=== PATIENT | female | born 1990 | race Caucasian/White ===

== ENCOUNTER 2017-04-15 05:43 | Inpatient (IN) | payer BC, MEDICAID ==
[2017-04-15 09:04] LABS: Hematocrit 35 % (35-47); Hemoglobin 11.5 g/dl (12.0-16.0); Mean Corpuscular HGB Conc 33 g/dl (31-36); Mean Corpuscular Hemoglobin 28 pg (27-31); Mean Corpuscular Volume 85 fL (80-97); Mean Platelet Volume 10 um3 (7.4-10.4); Red Cell Distribution Width 14 % (10.5-15)
[2017-04-15] MEDS ORDERED: OBEPIDURAL* 250 ML ONE (10:20)
[2017-04-15] MEDS ORDERED: Phenylephrine IV* 40 MCG/ML 10 ML SYRINGE ONE (10:40)
[2017-04-15] MEDS ORDERED: EPHEDrine (Pressors)* 50 MG/ML VIAL IV PUSH PRN (10:53)
[2017-04-15] MEDS ORDERED: Phenylephrine IV* 40 MCG/ML 10 ML SYRINGE IV PUSH PRN (10:53)
[2017-04-15] MEDS ORDERED: Famotidine TAB* 20 MG PO PRN (10:53)
[2017-04-15] MEDS ORDERED: Sodium Citrate/Citric Acid* 15 ML UDC PO PRN (10:53)
[2017-04-15] MEDS ORDERED: OBEPIDURAL* 250 ML EPIDURAL SCH (11:00)
[2017-04-15] MEDS ORDERED: Oxytocin in LR* 20 UNITS/1,000 ML BAG IVPB SCH (18:00)
[2017-04-15] MEDS ORDERED: Acetaminophen TAB* 325 MG ONE (18:24)
[2017-04-16] MEDS ORDERED: fentaNYL* 50 MCG/ML 2 ML VIAL (100 MCG VIAL) IV ONE (02:59)
[2017-04-16] MEDS ORDERED: fentaNYL* 50 MCG/ML 2 ML VIAL (100 MCG VIAL) ONE (03:00)
[2017-04-16] MEDS ORDERED: Dibucaine 1% 28.35 GM TUBE ONE (03:44)
[2017-04-16] MEDS ORDERED: Witch Hazel PAD* JAR ONE (03:44)
[2017-04-16] MEDS ORDERED: Acetaminophen TAB* 325 MG PO PRN (03:50)
[2017-04-16] MEDS ORDERED: Glycerin ADULT SUPP PR PRN (03:50)
[2017-04-16] MEDS ORDERED: Measles, Mumps,Rubella VACC* 0.5 ML/VIAL SUBCUT ONE (03:50)
[2017-04-16] MEDS ORDERED: Oxytocin in LR* 20 UNITS/1,000 ML BAG IVPB SCH (04:00)
[2017-04-16] MEDS: Dibucaine 1% 28.35 GM TUBE PR PRN ×2 (04:31→20:55)
[2017-04-16] MEDS: Ibuprofen TAB* 600 MG PO PRN ×3 (04:31→18:14)
[2017-04-16] MEDS: Witch Hazel PAD* JAR TOPICAL PRN ×2 (04:31→20:54)
[2017-04-16] MEDS: Docusate CAP* 100 MG PO SCH ×3 (08:14→20:52)
[2017-04-16] MEDS: oxyCODONE/Acetamin 5/325 MG* TAB PO PRN ×4 (08:14→20:52)
[2017-04-16] MEDS ORDERED: Simethicone CHEW TAB* 80 MG PO SCH (08:30)
[2017-04-17] MEDS: Ibuprofen TAB* 600 MG PO PRN ×4 (00:14→22:42)
[2017-04-17] MEDS: Witch Hazel PAD* JAR TOPICAL PRN (00:14)
[2017-04-17] MEDS: Dibucaine 1% 28.35 GM TUBE PR PRN (00:14)
[2017-04-17] MEDS: oxyCODONE/Acetamin 5/325 MG* TAB PO PRN ×5 (01:02→20:05)
[2017-04-17 06:34] LABS: Hematocrit 25 % (35-47); Mean Corpuscular HGB Conc 33 g/dl (31-36); Mean Corpuscular Hemoglobin 28 pg (27-31); Mean Corpuscular Volume 87 fL (80-97); Mean Platelet Volume 9 um3 (7.4-10.4); Red Blood Count 2.82 10^6/ul (4.0-5.4); Red Cell Distribution Width 14 % (10.5-15); White Blood Count 14.5 10^3/ul (3.5-10.8)
[2017-04-17] MEDS: Ferrous Gluconate TAB* 324 MG TAB PO SCH ×2 (09:26→22:42)
[2017-04-17] MEDS: Docusate CAP* 100 MG PO SCH ×3 (09:26→22:42)
[2017-04-18] MEDS: oxyCODONE/Acetamin 5/325 MG* TAB PO PRN ×4 (01:54→21:16)
[2017-04-18] MEDS: Ibuprofen TAB* 600 MG PO PRN ×3 (05:31→19:49)
[2017-04-18] MEDS: Ferrous Gluconate TAB* 324 MG TAB PO SCH ×2 (09:38→19:49)
[2017-04-18] MEDS: Docusate CAP* 100 MG PO SCH ×3 (09:38→19:49)
[2017-04-18] MEDS: Dibucaine 1% 28.35 GM TUBE PR PRN (14:18)
[2017-04-18] MEDS: Witch Hazel PAD* JAR TOPICAL PRN (14:18)
[2017-04-18] MEDS ORDERED: oxyCODONE TAB* 5 MG TAB PO PRN (15:02)
[2017-04-18] MEDS ORDERED: oxyCODONE/Acetamin 5/325 MG* TAB PO PRN (20:04)
[2017-04-19] MEDS: Ibuprofen TAB* 600 MG PO PRN ×2 (03:01→09:50)
[2017-04-19 08:22] VITALS: BP 113/68
[2017-04-19] MEDS: Docusate CAP* 100 MG PO SCH (09:49)
[2017-04-19] MEDS: Ferrous Gluconate TAB* 324 MG TAB PO SCH (09:49)
== END 2017-04-19 10:16 | disposition home or self-care (01) | DRG 542 ==
LOC: MCHOBOUT 05:43 → MCHOB 08:37
PROVIDERS: ADMIT Midwife; ATTEND Midwife
PROC: 10907ZC Drainage of Amniotic Fluid, Therapeutic from Products of Conception, Via Natural or Artificial Opening (ICD-10-PCS; principal; 2017-04-15)
PROC: 10E0XZZ Delivery of Products of Conception, External Approach (ICD-10-PCS; 2017-04-15)
PROC: 4A1HX4Z Monitoring of Products of Conception, Cardiac Electrical Activity, External Approach (ICD-10-PCS; 2017-04-15)
PROC: 0DQR0ZZ Repair Anal Sphincter, Open Approach (ICD-10-PCS; 2017-04-15)
DX: O48.0 Post-term pregnancy (principal); O70.20 Third degree perineal laceration during delivery, unspecified; O90.81 Anemia of the puerperium; O66.0 Obstructed labor due to shoulder dystocia; Z87.891 Personal history of nicotine dependence; Z3A.41 41 weeks gestation of pregnancy; Z37.0 Single live birth
CPT/HCPCS: 36415; 85025; 86850; 86900; 86901; 90707; A9270-GY; J3010

== ENCOUNTER → 2017-10-08 19:34 | Emergency (ER) | payer BC, MEDICAID ==
[~2017-10-08 19:34] MED LIST: A lbuterol Hfa (PREPAK) 1 MDI - ED TAKE HOME DISPENSING ONLY INHH ONE; Benzonatate CAP* 100 MG PO ONE
--- NOTE | 2017-10-08 21:24 | ED ---
Influenza-Like Illness - HPI Summary HPI Summary: 26F presents with cough, body aches, and sore throat for 2 days. She denies any SOB or chest pain. She denies any abdominal pain or n/v/d. She admits to fever. She admits to sinus congestion. She has tried Tylenol which has helped. She denies any resp issues. She states the cough has been bothering her the most. nothing makes the cough worst. She denies any history of strep throat. - History of Current Complaint Chief Complaint: EDUpperRespComplaint Time Seen by Provider: 10/08/17 19:47 - Allergy/Home Medications Allergies/Adverse Reactions: Allergies Allergy/AdvReac Type Severity Reaction Status Date / Time No Known Allergies Allergy Verified 10/08/17 19:38 PMH/Surg Hx/FS Hx/Imm Hx Endocrine/Hematology History: Denies: Hx Diabetes, Hx Thyroid Disease Cardiovascular History: Denies: Hx Hypertension Respiratory History: Denies: Hx Asthma, Hx Chronic Obstructive Pulmonary Disease (COPD) GI History: Denies: Hx Ulcer Infectious Disease History: No Infectious Disease History: Denies: Hx Hepatitis, Hx Human Immunodeficiency Virus (HIV), Traveled Outside the in Last 30 Days - Family History Known Family History: Negative: Respiratory Disease - Social History Alcohol Use: None Substance Use Type: Reports: None Smoking Status (MU): Light Every Day Tobacco Smoker Review of Systems Positive: Fever Positive: Sore Throat, Nasal Discharge Negative: Chest Pain Positive: Cough. Negative: Shortness Of Breath All Other Systems Reviewed And Are Negative: Yes Physical Exam Triage Information Reviewed: Yes Vital Signs On Initial Exam: Initial Vitals Temp Pulse Resp BP Pulse Ox 99.0 F 110 18 126/85 97 10/08/17 19:36 10/08/17 19:36 10/08/17 19:36 10/08/17 19:36 10/08/17 19:36 Vital Signs Reviewed: Yes Appearance: Positive: Well-Appearing Skin: Positive: Warm, Dry Head/Face: Positive: Normal Head/Face Inspection Eyes: Positive: Normal, EOMI, SILVANA, Conjunctiva Clear ENT: Positive: Normal ENT inspection, Pharyngeal erythema, Nasal congestion, Nasal drainage, TMs normal, Other - soft palate symmetric. Negative: Tonsillar swelling, Tonsillar exudate, Trismus, Muffled voice, Sinus tenderness, Uvula midline Neck: Positive: Supple, Nontender, No Lymphadenopathy Respiratory/Lung Sounds: Positive: Clear to Auscultation, Breath Sounds Present Cardiovascular: Positive: Normal, RRR Abdomen Description: Positive: Nontender, Soft Bowel Sounds: Positive: Present Musculoskeletal: Positive: Normal Neurological: Positive: Normal Psychiatric: Positive: Normal - [place] Coma Scale Coma Scale Total: 15 Diagnostics - Vital Signs Vital Signs Temp Pulse Resp BP Pulse Ox 10/08/17 19:36 99.0 F 110 18 126/85 97 - Laboratory Lab Statement: Any lab studies that have been ordered have been reviewed, and results considered in the medical decision making process. Flu Symptom Course/Dx - Course Course Of Treatment: 26F presents with cough, body aches, and sore throat for 2 days. She denies any SOB or chest pain. She denies any abdominal pain or n/v/ d. She admits to fever. She admits to sinus congestion. She has tried Tylenol which has helped. She denies any resp issues. She states the cough has been bothering her the most. nothing makes the cough worst. She denies any history of strep throat. on exam lungs CTA. pharnyx normal. flu and strept neg. will treat with magic mouth wash, tessalon, and inhaler patient understand and agrees with plan. - Diagnoses Differential Diagnosis/HQI/PQRI: Positive: Bronchitis, Influenza, Upper Respiratory Infection Provider Diagnoses: Upper respiratory infection Discharge - Discharge Plan Condition: Good Disposition: HOME Prescriptions: Benzonatate CAP* [Tessalon 100 MG CAP*] 100 mg PO TID PRN #21 cap PRN Reason: Cough Magic Mouth Was-JEFFREY/MAAL/LIDO* 5 ml SWISH SPIT QID #100 ml Patient Education Materials: Upper Respiratory Infection (ED) Referrals: Kenney Maria MD [Primary Care Provider] - Additional Instructions: Use Tessalon three times a day for cough Use inhaler one puff every 4-6 hours for cough as needed Take magic mouth wash swish and spit 5ml four times a day Use saline in the nose Use humidifier or place warm bowls of water around the room for cough Take Tylenol and ibuprofen for pain/fever every 6 hours Return to ED if develop any new or worsening symptoms
[2017-10-08 22:56] VITALS: BP 113/75
== END | disposition home or self-care (01) ==
LOC: ED 19:34
DX: J06.9 Acute upper respiratory infection, unspecified (principal); R05 Cough; R06.02 Shortness of breath; R50.9 Fever, unspecified; J02.9 Acute pharyngitis, unspecified; F17.210 Nicotine dependence, cigarettes, uncomplicated
CPT/HCPCS: 87502; 87651; 99282; A9270-GY

== ENCOUNTER 2018-06-03 17:35 | Emergency (ER) | payer BC ==
[2018-06-03 18:41] LABS: ABS Basophils 0 10^3/ul (0-0.2); ABS Eosinophils 0.1 10^3/ul (0-0.6); ABS Lymphocytes 1.5 10^3/ul (1.0-4.8); ABS Monocytes 0.5 10^3/ul (0-0.8); ABS Neutrophils 2.5 10^3/ul (1.5-7.7); ABS Nucleated RBC 0 10^3/ul; Eosinophil % 1.4 % (0-6); Hematocrit 37 % (35-47); Hemoglobin 12.4 g/dl (12.0-16.0); Lymphocyte % 32.6 % (25-47); Mean Corpuscular HGB Conc 34 g/dl (31-36); Mean Corpuscular Hemoglobin 28 pg (27-31); Mean Corpuscular Volume 84 fL (80-97); Mean Platelet Volume 8.3 um3 (7.4-10.4); Nucleated Red Blood Cells % 0.1; Platelet Count 265 10^3/ul (150-450); Red Blood Count 4.37 10^6/ul (4.00-5.40); Red Cell Distribution Width 13 % (10.5-15); White Blood Count 4.5 10^3/ul (3.5-10.8)
--- NOTE | 2018-06-03 18:55 | ED ---
Complex/Multi-Sys Presentation - HPI Summary HPI Summary: 27 year old presents with generalized body aches for the couple days. She states she did have a miscarriage two weeks ago. She denies any fevers. She denies any chest pain or shortness breath. No abdominal pain. no nausea, vomiting, or diarrhea. no other symptoms. this has never happened before. denies any drug use. no cough or sore throat. She has no medical conditions. no recent illness. no one else is sick. never had this before. no urinary symptoms. - History Of Current Complaint Chief Complaint: EDGeneral Time Seen by Provider: 06/03/18 18:18 - Allergies/Home Medications Allergies/Adverse Reactions: Allergies Allergy/AdvReac Type Severity Reaction Status Date / Time No Known Allergies Allergy Verified 10/08/17 19:38 PMH/Surg Hx/FS Hx/Imm Hx Endocrine/Hematology History: Denies: Hx Diabetes, Hx Thyroid Disease Cardiovascular History: Denies: Hx Hypertension Respiratory History: Denies: Hx Asthma, Hx Chronic Obstructive Pulmonary Disease (COPD) GI History: Denies: Hx Ulcer Infectious Disease History: No Infectious Disease History: Denies: Hx Hepatitis, Hx Human Immunodeficiency Virus (HIV), Traveled Outside the [place] in Last 30 Days - Family History Known Family History: Negative: Respiratory Disease - Social History Alcohol Use: Occasionally Substance Use Type: Reports: None Smoking Status (MU): Light Every Day Tobacco Smoker Review of Systems Positive: Other - muscle aches. Negative: Fever Negative: Chest Pain Negative: Shortness Of Breath All Other Systems Reviewed And Are Negative: Yes Physical Exam Triage Information Reviewed: Yes Vital Signs On Initial Exam: Initial Vitals Temp Pulse Resp BP Pulse Ox 98.5 F 89 14 132/94 98 06/03/18 17:46 06/03/18 17:46 06/03/18 17:46 06/03/18 17:46 06/03/18 17:46 Vital Signs Reviewed: Yes Appearance: Positive: Well-Appearing Skin: Positive: Warm, Dry Head/Face: Positive: Normal Head/Face Inspection Eyes: Positive: Normal, Conjunctiva Clear ENT: Positive: Pharynx normal Respiratory/Lung Sounds: Positive: Clear to Auscultation, Breath Sounds Present Cardiovascular: Positive: Normal, RRR Abdomen Description: Positive: Nontender, Soft Bowel Sounds: Positive: Present Musculoskeletal: Positive: Normal Neurological: Positive: Normal Psychiatric: Positive: Normal Diagnostics - Vital Signs Vital Signs Temp Pulse Resp BP Pulse Ox 06/03/18 17:46 98.5 F 89 14 132/94 98 - Laboratory Lab Results: Lab Results 06/03/18 Range/Units 18:32 WBC 4.5 (3.5-10.8) 10^3/ul RBC 4.37 (4.00-5.40) 10^6/ul Hgb 12.4 (12.0-16.0) g/dl Hct 37 (35-47) % MCV 84 (80-97) fL MCH 28 (27-31) pg MCHC 34 (31-36) g/dl RDW 13 (10.5-15) % Plt Count 265 (150-450) 10^3/ul MPV 8.3 (7.4-10.4) um3 Neut % (Auto) 55.0 (38-83) % Lymph % (Auto) 32.6 (25-47) % [place] % (Auto) 10.1 H (0-7) % Eos % (Auto) 1.4 (0-6) % Baso % (Auto) 0.9 (0-2) % Absolute Neuts (auto) 2.5 (1.5-7.7) 10^3/ul Absolute Lymphs (auto) 1.5 (1.0-4.8) 10^3/ul Absolute Monos (auto) 0.5 (0-0.8) 10^3/ul Absolute Eos (auto) 0.1 (0-0.6) 10^3/ul Absolute Basos (auto) 0 (0-0.2) 10^3/ul Absolute Nucleated RBC 0 10^3/ul Nucleated RBC % 0.1 Result Diagrams: 06/03/18 18:32 06/03/18 18:32 Lab Statement: Any lab studies that have been ordered have been reviewed, and results considered in the medical decision making process. Complex Multi-Symp Course/Dx Course Of Treatment: 27 year old presents with generalized body aches for the couple days. She states she did have a miscarriage two weeks ago. She denies any fevers. She denies any chest pain or shortness breath. No abdominal pain. no nausea, vomiting, or diarrhea. no other symptoms. this has never happened before. denies any drug use. no cough or sore throat. She has no medical conditions. on exam normal physicial exam. wbc normal. CK normal. electyrolytes normal. no urinary symptoms so like wait for final culture. discussed do not have a reason for muscles aches. told to follow up with primary. patient understand and agrees with plan. - Diagnoses Differential Diagnoses/HQI/PQRI: Metabolic Abnormality, Sepsis, Urinary Tract Infection Provider Diagnoses: Generalized muscle ache Discharge - Sign-Out/Discharge Documenting (check all that apply): Patient Departure - Discharge Plan Condition: Good Disposition: HOME Referrals: Kenney Maria MD [Primary Care Provider] - Additional Instructions: Drink plenty of fluids Get enough sleep take Tylenol or ibuprofen every 6 hours for pain Follow up with primary within 5 days Return to ED if develop any new or worsening symptoms - Billing Disposition and Condition Condition: GOOD Disposition: Home
[2018-06-03 18:56] LABS: EGFR Non-African American 77.3 (>60)
[2018-06-03 19:24] VITALS: BP 100/75
[2018-06-03 19:26] LABS: Urine Appearance Cloudy; Urine Blood Negative (Negative); Urine Color Yellow; Urine Ketones Negative (Negative); Urine Protein Negative (Negative); Urine Red Blood Cell Absent (Absent); Urine Specific Gravity 1.025 (1.010-1.030); Urine Urobilinogen Negative (Negative); Urine White Blood Cell Trace(0-5/hpf) (Absent)
== END 2018-06-03 19:21 | disposition home or self-care (01) ==
LOC: ED 17:35
DX: M79.1 Myalgia (principal)
CPT/HCPCS: 36415; 80053; 81003; 81015; 82550; 83735; 84702; 85025; 86140; 86308; 87086; 99282